=== PATIENT | male | born 2000 | race Caucasian/White ===

== ENCOUNTER 2022-03-25 18:04 | Emergency (ER) | payer MEDICAID ==
[~2022-03-25] VITALS: Ht 185.4 cm; Wt 77.1 kg
--- NOTE | 2022-03-25 18:34 | NUR ---
Dr House at the bedside for MSE.
--- NOTE | 2022-03-25 18:50 | NUR ---
Xray in progress.
[2022-03-25] MEDS ORDERED: OXYC-128 PO (19:22)
--- NOTE | 2022-03-25 19:49 | NUR ---
Patient discharged to home in stable condition. Written and verbal after care instructions given. Patient verbalizes understanding of instructions. Stressed follow up or return to ER for worsening s/s. pt ambulated with steady gait. denies pain .no SOB. no chest pain. AOx4
[2022-03-25 19:50] VITALS: BP 121/70
== END 2022-03-25 19:50 | disposition home or self-care (01) ==
LOC: ER 18:07
DX: S62.390A Other fracture of second metacarpal bone, right hand, initial encounter for closed fracture (principal); Y93.71 Activity, boxing; Y92.89 Other specified places as the place of occurrence of the external cause
CPT/HCPCS: 73130; A4663

== ENCOUNTER 2023-01-09 16:23 | Emergency (ER) | payer MEDICAID, OTHER ==
[~2023-01-09] VITALS: Ht 188 cm; Wt 83.9 kg
[~2023-01-09 16:23] MED LIST: OXYC-128 PO
--- NOTE | 2023-01-09 16:50 | NUR ---
Patient discharged to home in stable condition with brisk steady gait. Written and verbal after care instructions given. Patient verbalized understanding and compliance of instructions. Stressed follow up with primary doctor or neurologist or return to ER for worsening s/s.
== END 2023-01-09 16:50 | disposition home or self-care (01) ==
LOC: ER 16:24
DX: F07.81 Postconcussional syndrome (principal); S09.90XD Unspecified injury of head, subsequent encounter; Y04.0XXD Assault by unarmed brawl or fight, subsequent encounter; G44.309 Post-traumatic headache, unspecified, not intractable
CPT/HCPCS: A4663

== ENCOUNTER 2023-10-30 08:17 | Emergency (ER) | payer MEDICAID, OTHER ==
[~2023-10-30] VITALS: Ht 185.4 cm; Wt 72.6 kg
[2023-10-30 08:22] VITALS: O2SAT 99
[2023-10-30] MEDS ORDERED: KETOROLAC TROMETHAMINE 30 MG INJ IM ONE (08:30)
[2023-10-30] MEDS ORDERED: KETOROLAC TROMETHAMINE 30 MG INJ ONE (08:32)
[2023-10-30] MEDS ORDERED: NAPR-1009 PO (08:50)
== END 2023-10-30 09:25 | disposition home or self-care (01) ==
LOC: ER 08:25
DX: S43.005A Unspecified dislocation of left shoulder joint, initial encounter (principal); Z79.899 Other long term (current) drug therapy; X50.1XXA Overexertion from prolonged static or awkward postures, initial encounter; Y93.71 Activity, boxing; Y92.89 Other specified places as the place of occurrence of the external cause; Y99.8 Other external cause status
CPT/HCPCS: 73200; A4606; A4663; J1885